=== PATIENT | female | born 1945 ===

== ENCOUNTER 2023-06-06 05:18 | Day surgery (SDC) | payer OTHER ==
[~2023-06-06] VITALS: Ht 152.4 cm; Wt 49.9 kg
[~2023-06-06 05:18] MED LIST: DORZOLAMIDE-TI1 EACH OP
== END 2023-06-06 13:20 | disposition home or self-care (01) ==
LOC: CIR.AMB 05:18
PROVIDERS: ATTEND Surgery Surgery of the Hand
DX: M65.841 Other synovitis and tenosynovitis, right hand (principal); Z20.822 Contact with and (suspected) exposure to COVID-19